=== PATIENT | female | born 1950 | race Hispanic/Latino ===

== ENCOUNTER 2021-05-27 12:48 | Emergency (ER) | payer SELFPAY ==
[~2021-05-27] VITALS: Ht 152.4 cm; Wt 67.3 kg
[2021-05-27] MEDS ORDERED: diphenhydrAMINE 50MG/ML VIAL (J1200) IV STA (15:18)
[2021-05-27] MEDS ORDERED: NS 1,000 ML IV ONE (15:20)
[2021-05-27] MEDS ORDERED: KETOROLAC 30 MG/ML 1ML VIAL IV ONE (15:20)
[2021-05-27] MEDS ORDERED: METOCLOPRAMIDE INJ 10MG/2ML VIAL (J2765 PER 1) IV ONE (15:20)
[2021-05-27 15:41] LABS: BASO % 0.2 % (0.0-1.0); HEMATOCRIT 40.7 % (36.0-47.0); HEMOGLOBIN 13.6 g/dl (12.0-15.5); LYMPH # 0.9 10^3/uL (1.5-5.0); LYMPH % 13.8 % (24.0-44.0); MEAN CORPUSCULAR HEMOGLOBIN 29.4 pg (27.0-33.0); MEAN CORPUSCULAR HGB CONC 33.4 g/dl (32.0-36.5); MEAN CORPUSCULAR VOLUME 87.9 fl (80.0-96.0); MONO # 0.7 10^3/uL (0.0-0.8); MONO % 10.5 % (2.0-8.0); NEUTROPHILS # 4.8 10^3/uL (1.5-8.5); PLATELET COUNT, AUTOMATED 272 10^3/uL (150-450); RED BLOOD COUNT 4.63 10^6/uL (4.00-5.40); WHITE BLOOD COUNT 6.4 10^3/uL (4.0-10.0)
[2021-05-27 17:00] LABS: ERYTHROCYTE SEDIMENTATION RATE 29 mm/hr (0-30)
--- NOTE | 2021-05-27 18:18 | REPVR ---
PROCEDURE INFORMATION: Exam: CT Head Without Contrast Exam date and time: 05/27/2021 5:34 PM Age: 71 years old Clinical indication: Pain; Headache; Additional info: PT tender, VEE x 4 days TECHNIQUE: Imaging protocol: Computed tomography of the head without contrast. Radiation optimization: All CT scans at this facility use at least one of these dose optimization techniques: automated exposure control; mA and/or kV adjustment per patient size (includes targeted exams where dose is matched to clinical indication); or iterative reconstruction. COMPARISON: No relevant prior studies available. FINDINGS: Brain: No acute intracranial hemorrhage, cerebral edema, or midline shift. Cerebral ventricles: No hydrocephalus. Paranasal sinuses: There is no acute sinusitis. Mastoid air cells: Visualized mastoid air cells are well aerated. Orbital cavity: Unremarkable as visualized. Bones/joints: No acute fracture. Soft tissues: Unremarkable. IMPRESSION: No acute intracranial abnormality. Electronically signed by: Jeffery Tobar On 05/27/2021 18:18:12 PM
--- NOTE | 2021-05-27 18:21 | REPVR ---
PROCEDURE INFORMATION: Exam: CT Cervical Spine Without Contrast Exam date and time: 05/27/2021 5:34 PM Age: 71 years old Clinical indication: Pain; Other: PT tender, VEE x 4 days TECHNIQUE: Imaging protocol: Computed tomography images of the cervical spine without contrast. Radiation optimization: All CT scans at this facility use at least one of these dose optimization techniques: automated exposure control; mA and/or kV adjustment per patient size (includes targeted exams where dose is matched to clinical indication); or iterative reconstruction. COMPARISON: No relevant prior studies available. FINDINGS: Bones/joints: Bone mineralization is decreased, suggestive of osteoporosis. There is no acute fracture. Alignment is anatomic. Discs/Spinal canal/Neural foramina: No significant spinal canal stenosis or neural foraminal narrowing. Lungs: There is a calcified granuloma within the left upper lobe. Soft tissues: Unremarkable. IMPRESSION: 1. No acute abnormality. 2. Chronic findings as discussed above. Electronically signed by: Jeffery Tobar On 05/27/2021 18:20:49 PM
[2021-05-27 18:38] VITALS: BP 157/71
== END 2021-05-27 19:31 | disposition home or self-care (01) ==
LOC: M ED 12:48
DX: U07.1 COVID-19 (principal); R51.9 Headache, unspecified; E78.5 Hyperlipidemia, unspecified
CPT/HCPCS: 70450; 72125; 80047; 83735; 85025; 85652; 87798; 96361; 96374; 96375; 99284; J1200; J1885; J2765

== ENCOUNTER 2021-05-28 11:08 | Outpatient (CLI) | payer SELFPAY ==
[2021-05-28 11:24] VITALS: BP 160/70
[2021-05-28] MEDS ORDERED: ALBUTEROL SULFATE 2.5 MG/0.5 ML INH NEB SOLN INH PRN (11:35)
[2021-05-28] MEDS ORDERED: methylPREDNISolone 125MG 2ML VIAL IV PRN (11:35)
[2021-05-28] MEDS ORDERED: ALBUTEROL 90 MCG/ACT 8GM HFA INHALER INH PRN (11:35)
[2021-05-28] MEDS ORDERED: diphenhydrAMINE 50MG/ML VIAL (J1200) IV PRN (11:35)
[2021-05-28] MEDS ORDERED: ACETAMINOPHEN TAB 650MG DOSE (2X325MG) PO PRN (11:35)
[2021-05-28] MEDS ORDERED: NS 1,000 ML IV SCH (11:35)
[2021-05-28] MEDS ORDERED: EPINEPHrine INJ 1 MG/ML 1ML AMP IM PRN (11:35)
[2021-05-28 12:05] VITALS: BP 173/79
[2021-05-28 12:40] VITALS: BP 144/70
[2021-05-28 13:13] VITALS: BP 138/65
--- NOTE | 2021-05-28 13:55 | HPEPDOC ---
[facility] Medical History & Physical Date of Admission May 28, 2021 Date of Service: May 28, 2021 Attending Physician: SATYA GARZA DO History and Physical CHIEF COMPLAINT: COVID-19 HISTORY OF PRESENT ILLNESS: Patient is a 71-year-old female presented to the emergency department yesterday with chief complaint of shortness of breath and cough. Patient was diagnosed with COVID-19. Patient symptoms began last , 05/22/2021. Patient says that her only complaint has been bone pain but this has gotten somewhat better. Patient denies having any fevers at home. Patient has been coughing but it is not a productive cough according to the patient's daughter. Patient is otherwise feeling well. Patient was going to be admitted last night for monoclonal antibody infusion however, due to staffing shortages, patient was told to come back during the day today. Patient arrived back onto the unit for her monoclonal infusion. Patient went through the risks and benefits of the infusion yesterday in the emergency department story writer and these were reviewed on today. PAST MEDICAL HISTORY: Denies any past medical history PAST SURGICAL HISTORY: 1. 2 C-sections. SOCIAL HISTORY: Denies smoking, alcohol use, or illicit drug use FAMILY HISTORY: Denies any relevant family history ALLERGIES: Please see below. REVIEW OF SYSTEMS: General: Patient denies fevers HEENT: Patient denies headaches Cardiovascular: Patient denies chest pain Respiratory: Patient reports shortness of breath, cough as above GI: Patient denies abdominal pain, nausea, vomiting, diarrhea : Patient denies increased frequency or pain with urination Extremities: Patient denies swelling or pain in extremities Neurological: Patient denies numbness or tingling in legs Skin: Patient denies any new rashes or lesions. Hematologic: Patient denies any easy bruising. Lymphatic: Patient denies any lumps lumps or bumps in neck, axilla, or groin HOME MEDICATIONS: Please see below. PHYSICAL EXAMINATION: VITAL SIGNS: Temperature 100.1, pulse 76, respiratory rate 18, blood pressure 138/65, pulse oximetry 95% on room air. General: Alert and oriented female patient who was sitting up in bed when I walked in. Patient did not appear to be in acute distress. HEENT: Normocephalic, atraumatic, moist mucous membranes. Neck: No lymphadenopathy or thyromegaly Cardiac: Regular rate and rhythm, no murmurs, normal S1, normal S2 Pulm: Clear to auscultation bilaterally. No wheezes, rhonchi, rales Abd: Nondistended, nontender to palpation, normal bowel sounds Ext: No edema bilateral lower extremities LABORATORY DATA: See below. IMAGING: CT of the head performed without contrast on 05/27/2021 is reported to show no acute intracranial abnormality. CT of the cervical spine without contrast on 05/27/2021 is reported to show no acute abnormality. Chronic findings including a calcified granuloma within the left upper lobe MICROBIOLOGY: Please see below. ASSESSMENT: 71-year-old female who is symptomatic with COVID-19 but does not meet admission criteria who will be admitted for monoclonal antibodies. . PLAN: 1. COVID-19. Patient is 6 days into her symptoms of COVID-19. Patient will receive monoclonal antibodies. I went through the consent form and the risk and benefits of monoclonal antibodies with the patient and her daughter who was on the phone. Patient is in agreement to receive monoclonal antibodies and the consent form has been signed. Patient's daughter is also in agreement with this treatment. Patient received monoclonal antibodies and once the infusion is complete, the patient will be discharged. Patient is having mild fever which was treated with Tylenol which is secondary to COVID-19. Once patient's 90 days out from the monoclonal antibodies, I do recommend the patient receive her Prevnar vaccine if she has not already as well as the influenza shot. Patient should also receive the vaccine for COVID-19 as well. 2. Elevated blood pressures without the diagnosis of hypertension. Patient's blood pressure been elevated. Patient should follow up with her primary care provider once feeling better for further diagnostic testing for possible hypertension. 3. CODE STATUS: CODE STATUS was not discussed with the patient as she is recei ving monoclonal antibodies and then is going to be discharged. Vital Signs Vital Signs Date Time Temp Pulse Resp B/P (MAP) Pulse Ox O2 Delivery O2 Flow Rate FiO2 05/28/21 13:13 100.6 76 18 138/65 (89) 95 Room Air Allergies Coded Allergies: No Known Allergies (Unverified , 05/27/21) A-FIB/CHADSVASC A-FIB History Current/History of A-Fib/PAF?: No SATYA GARZA DO May 28, 2021 13:55
[2021-05-28] MEDS ORDERED: CASIRIVIMAB/IMDEVIMAB 1,200 MG in NS 250 ML IV ONE (14:00)
[2021-05-28 14:16] VITALS: BP 148/75
== END 2021-05-28 14:25 | disposition home or self-care (01) ==
LOC: M OPCLI4 11:08
PROVIDERS: ATTEND Family Medicine
DX: U07.1 COVID-19 (principal)